=== PATIENT | female | born 1980 | race Caucasian/White ===

== ENCOUNTER → 2017-05-09 | Outpatient (CLI) | payer OTHER ==
--- NOTE | 2017-05-09 12:22 | REP ---
Supine abdomen single AP view: Comparison is a lumbar spine study dated 08/06/2016. There is a faintly visible 3 mm density superimposed over the lower pole of the right kidney and a faintly visible 3 mm density superimposed over the upper pole of the left kidney. These could represent faintly visible renal calculi, or artifact from superimposed bowel. No calcifications are identified along the courses of the ureters or over the urinary bladder. The bowel gas pattern is normal. Skeletal structures and soft tissues are otherwise unremarkable. Impression: Questionable renal calculi versus bowel artifact. Signed by Bandar Naqvi MD 05/09/2017 12:14 P
== END ==
LOC: M SMT 11:19
PROVIDERS: ATTEND Nurse Practitioner Women's Health
DX: Z87.442 Personal history of urinary calculi (principal)
CPT/HCPCS: 74000; 81001; 82360; 87086; G0463